=== PATIENT | female | born 1965 | race Caucasian/White ===

== ENCOUNTER 2021-08-01 18:39 | Emergency (ER) | payer SELFPAY ==
[~2021-08-01] VITALS: Ht 165 cm; Wt 78.0 kg
[~2021-08-01 18:39] MED LIST: PRD20T PO
[2021-08-01] MEDS ORDERED: DOXYCYCLINE 100 MG (VIBRAMYCIN) TABLET PO SCH (19:30)
[2021-08-01] MEDS ORDERED: DOXY100T2 PO (19:32)
--- NOTE | 2021-08-01 19:32 | ED Integumentary General ---
General Chief Complaint: Bite-Animal/Human/Insect Stated Complaint: POSSIBLE SPIDER BITE ON R LEG Source: patient Exam Limitations: no limitations (JASPER ISRAEL APRN) History of Present Illness Date Seen by Provider: Aug 01, 2021 Time Seen by Provider: 19:26 Initial Comments To ER with reports of a possible spider bite to the right leg. She first noticed a pustule that started on 07/16/2021. As time has progressed she has now developed some sloughing of tissue at that site that has now developed into a quarter sized ulcer that is shallow surrounded by redness as well as a smaller dime sized shallow erythematous ulcerative lesion anterior to that and another one posterior with some surrounding erythema/petechiae. No systemic symptoms such as muscle aches fatigue fevers chills or nausea. She did not see anything bite her nor did she feel anything bite her. She first noticed this at the end of the day. Otherwise healthy and does not have a primary care provider. She has been applying topical antibiotic ointment without improvement. Timing/Duration: getting worse, other (16 days ago) Severity: moderate Possible Cause: no cause identified Associated Symptoms: denies symptoms (JASPER ISRAEL APRN) Allergies and Home Medications Allergies Coded Allergies: codeine (Verified Allergy, Mild, 08/30/15) Patient Home Medication List Home Medication List Reviewed: Yes (JASPER ISRAEL APRN) Doxycycline Hyclate (Doxycycline Hyclate) 100 Mg Tablet, 100 MG PO BID Prescribed by: JASPER ISRAEL on 08/01/211931 Fluconazole (Diflucan) 100 Mg Tablet, 100 MG PO every other day Prescribed by: JASPER ISRAEL on 08/01/211940 Last Action: New Order Prednisone (Prednisone) 20 Mg Tab, 20 MG PO BID Prescribed by: FAY ESTEVEZ on 08/30/15 7868 Review of Systems Review of Systems Constitutional: see HPI EENTM: see HPI Respiratory: no symptoms reported Cardiovascular: no symptoms reported Genitourinary: no symptoms reported Musculoskeletal: no symptoms reported Skin: see HPI Psychiatric/Neurological: No Symptoms Reported Endocrine: No Symptoms Reported (JASPER ISRAEL APRN) Past Gxjhrda-Kgkdwb-Gmcnas Hx Past Medical History Gallbladder, Hysterectomy Arthritis (JASPER ISRAEL APRN) Physical Exam Vital Signs Vital Signs - First Documented 08/01/21 19:19 Temp 36.9 Pulse 101 Resp 20 B/P (MAP) 148/100 (116) (ELISA SMITH DO) Vital Signs Capillary Refill : (JASPER ISRAEL APRN) General Appearance: WD/WN, no apparent distress HEENT: PERRL/EOMI, normal ENT inspection Neck: non-tender, full range of motion Respiratory: no respiratory distress, no accessory muscle use Neurologic/Psychiatric: alert, normal mood/affect, oriented x 3 Skin: normal color, warm/dry Skin Problem Location: lower extremities Skin Problem Character: other (She has 3 separate lesions to the right lower extremity. At the mid calf the first lesion is now quarter sized shallow surrounded by a bit of erythema at the medial/posterior aspect of the calf. Just anterior to this is a smaller dime sized similar lesion and over the posterior aspect of the mid calf there is a similar-appearing second dime sized lesion. Surrounding all 3 of these is a larger area of erythema/petechiae. Strong dorsalis pulse. Foot is warm.) (JASPER ISRAEL APRN) Progress/Results/Core Measures Results/Orders Vital Signs/I&O 08/01/21 08/01/21 19:19 19:41 Temp 36.9 36.9 Pulse 101 90 Resp 20 18 B/P (MAP) 148/100 (116) 130/73 (ELISA SMITH DO) Departure Impression Primary Impression: Cellulitis Disposition: 01 HOME, SELF-CARE Condition: Stable Departure-Patient Inst. Decision time for Depature: 19:30 (JASPER ISRAEL APRN) Referrals: CHRISTIANO LONG DO (PCP) Primary Care Physician Patient Instructions: Cellulitis (Skin Infection), Adult (DC) Add. Discharge Instructions: 1. Take the antibiotics as directed. Return to ER for any fevers or chills or worsening symptoms. It would be a good idea to follow-up with a primary care provider to ensure resolution of this. If you do not have a primary care provider you can call [facility] at [phone] and they can get you an appointment. Alternatively you can call any primary care provider of your choosing just doing a Google search. Take the antibiotics as directed. Apply the topical antibiotic ointment twice daily. Wash gently with soap and water daily. All discharge instructions reviewed with patient and/or family. Voiced understanding. Scripts Fluconazole (Diflucan) 100 Mg Tablet 100 MG PO every other day, #3 TAB Prov: JASPER ISRAEL APRN 08/01/21 Doxycycline Hyclate (Doxycycline Hyclate) 100 Mg Tablet 100 MG PO BID, #14 TAB Prov: JASPER ISRAEL APRN 08/01/21 ATTENDING PHYSICIAN NOTED: I WAS PHYSICALLY PRESENT ER PHYSICIAN, BUT I WAS NOT INVOLVED IN ANY DECISION MAKING OR ANY CARE OF THIS PATIENT. (ELISA SMITH DO) JASPER ISRAEL APRN Aug 01, 2021 19:32 ELISA SMITH DO Aug 04, 2021 04:50
[2021-08-01] MEDS ORDERED: MUPIROCIN 2% OINT 22 GM (BACTROBAN) TUBE ONE (19:33)
[2021-08-01 19:41] VITALS: BP 130/73
[2021-08-01] MEDS ORDERED: FLUC100T PO (19:41)
[2021-08-01] MEDS ORDERED: MUPIROCIN 2% OINT 22 GM (BACTROBAN) TUBE TOP SCH (21:00)
== END 2021-08-01 19:42 | disposition home or self-care (01) ==
LOC: EDUNIT# 18:39 → ER 18:42
DX: L03.115 Cellulitis of right lower limb (principal)
CPT/HCPCS: 99283